=== PATIENT | male | born 1940 | race Caucasian/White ===

== ENCOUNTER 2017-09-21 | Inpatient (IN) | payer OTHER, MEDICARE | END 2017-10-01 12:18 | disposition home or self-care (01) | DRG 674 | PROVIDERS: ADMIT Internal Medicine | PROC: 0TB13ZX Excision of Left Kidney, Percutaneous Approach, Diagnostic (ICD-10-PCS; 2017-09-24) | PROC: 0JH63XZ Insertion of Tunneled Vascular Access Device into Chest Subcutaneous Tissue and Fascia, Percutaneous Approach (ICD-10-PCS; principal; 2017-09-28) | PROC: 02H633Z Insertion of Infusion Device into Right Atrium, Percutaneous Approach (ICD-10-PCS; principal; 2017-09-28) | DX: N17.0 Acute kidney failure with tubular necrosis (principal); E87.2 Acidosis; G20 Parkinson's disease; N40.0 Benign prostatic hyperplasia without lower urinary tract symptoms; D64.9 Anemia, unspecified; I10 Essential (primary) hypertension | CPT/HCPCS: 82306-90; 84484-PO; 86334-90; 86705-90; 88305-90; 88313-90; 88346-90; 88348-90; 97110-GP; 97162-GP; 97166-GO; 97530-GO; 97535-GO; G0472; G8978-GP-CJ; G8979-GP-CI; G8987-GO-CI; G8988-GO-CI; G8989-GO-CI; J0690; J0885; J1644; J2250; J2310; J3010 ==

== ENCOUNTER 2017-10-03 | Observation (INO) | payer OTHER, MEDICARE | END 2017-10-04 10:40 | disposition home or self-care (01) | PROVIDERS: ADMIT Internal Medicine | CPT/HCPCS: 70450; 93005; 93306; 93880; 96372; 99285; G0378; J1644 ==